=== PATIENT | male | born 1945 | race Caucasian/White ===

== ENCOUNTER 2020-09-09 07:52 | Day surgery (SDC) | payer MEDICARE, SELFPAY ==
[2020-09-03 09:56] VITALS: BMI 28.1
--- NOTE | 2020-09-08 10:54 | HO.ANESPROP2 ---
HPI - Anesthesia Eval Consult details Narrative: 75yo M for Colonoscopy PMFSH Past Medical History Medical History History of skin cancer History of urethral stricture HTN (hypertension) Surgical History Surgical History H/O colonoscopy Hx of dilation of urethra Social History Social History Patient Tobacco Use Status: Former Tobacco user Quit Date: 2006 Tobacco use type: Cigarette Use of substances other than those prescribed or required for medical reasons: No Are you DNR?: No Advance Directives: No Advance Directives Information Provided: Yes Meds Allergies Allergy/AdvReac Type Severity Reaction Status Date / Time pollen extracts Allergy Intermediate Itchy Eyes Verified 09/09/20 08:16 dust Allergy Intermediate Itchy Eyes Uncoded 09/03/20 09:52 Home Medications Medication Instructions Recorded Confirmed Last Taken Type amlodipine-benazepril 1 cap PO DAILY 09/03/20 09/03/20 09/09/20 07:15 History ascorbic acid (vitamin C) [Vitamin 500 mg PO DAILY 09/03/20 09/03/20 Unknown History C] loratadine 10 mg PO DAILY PRN 09/03/20 09/03/20 Unknown History multivitamin 1 tab PO DAILY 09/03/20 09/03/20 Unknown History zolpidem 10 mg PO BEDTIME 09/03/20 09/03/20 Unknown History Exam Exam Date and Time: September 08, 2020 1054 Height,Weight and Vital Signs: Height 5 ft 11 in Weight 91.626 kg Assessment and Plan Assessment Anesthesia Assessment: Chart Reviewed
[2020-09-09 08:23] VITALS: BP 138/84; PULSE 59; RESP 16; TEMP 37.1; O2SAT 98; BMI 26.4
[2020-09-09] MEDS: Lactated Ringers 1,000 ML 100 ML IVCONT (08:44)
--- NOTE | 2020-09-09 09:41 | HO.ANESPROP2 ---
[facility] Past Medical History Medical History History of skin cancer History of urethral stricture HTN (hypertension) Surgical History Surgical History H/O colonoscopy Hx of dilation of urethra Social History Social History Patient Tobacco Use Status: Former Tobacco user Quit Date: 2006 Tobacco use type: Cigarette Use of substances other than those prescribed or required for medical reasons: No Are you DNR?: No Advance Directives: No Advance Directives Information Provided: Yes Meds Allergies Allergy/AdvReac Type Severity Reaction Status Date / Time pollen extracts Allergy Intermediate Itchy Eyes Verified 09/09/20 08:16 dust Allergy Intermediate Itchy Eyes Uncoded 09/03/20 09:52 Active Medications: Current Medications Generic Name Dose Route Start Last Admin Trade Name Freq PRN Reason Stop Dose Admin Lactated Ringer's 1,000 mls @ 100 mls/hr 09/09/20 08:15 09/09/20 08:44 Lr IVCONT 100 mls/hr .Q10H LILI Administration Sodium Biphosphate/Sodium Phosphate 133 ml 09/09/20 08:03 Sodium Phosphate,Routt-Dibasic 133 Ml Enema DC ONCE PRN Poor Colonoscopy Prep Results Home Medications Medication Instructions Recorded Confirmed Last Taken Type amlodipine-benazepril 1 cap PO DAILY 09/03/20 09/03/20 09/09/20 07:15 History ascorbic acid (vitamin C) [Vitamin 500 mg PO DAILY 09/03/20 09/03/20 Unknown History C] loratadine 10 mg PO DAILY PRN 09/03/20 09/03/20 Unknown History multivitamin 1 tab PO DAILY 09/03/20 09/03/20 Unknown History zolpidem 10 mg PO BEDTIME 09/03/20 09/03/20 Unknown History Exam Exam Date and Time: September 09, 2020 0941 Height,Weight and Vital Signs: Height 5 ft 11 in Weight 86.183 kg Last Vital Signs Temp 98.8 F 09/09/20 08:23 Pulse 59 09/09/20 08:23 Resp 16 09/09/20 08:23 BP 138/84 09/09/20 08:23 Pulse Ox 98 09/09/20 08:23 Airway Mallampati Class: III TM Dist: >3cm Neck ROM: Full Heart: RRR Lungs: CTA
--- NOTE | 2020-09-09 10:56 | PM.OP ---
Brief Operative Note Date of Service: 09/09/20 Pre-op diagnosis: Screening Post-op diagnosis: other (Colon polyps) Procedure: Colonoscopy to the cecum with snare polypectomy(Transverse colon) and biopsy and removal of polyps Surgeon: Lico Rice Anesthesia: MAC Was an Director Of [employer] used for this Procedure?: No Estimated blood loss (mL): 3.0 Pathology: other (A. Cecal polyp B. Proximal ascending colon polyp C. Transverse colon polyp) Condition: stable Disposition: PACU
[2020-09-09 10:57] VITALS: BP 86/53; PULSE 50; RESP 16; TEMP 37.4; O2SAT 96
[2020-09-09 11:12] VITALS: BP 101/67; PULSE 62; RESP 18; O2SAT 97
--- NOTE | 2020-09-09 11:33 | OP_ITS ---
SURGEON: Lico Rice MD INDICATIONS: The patient presents for evaluation of personal history of tubular adenoma of the colon and colorectal cancer screening. Full consent has been obtained from him for this, including risks of bleeding and perforation. PREOPERATIVE DIAGNOSIS: POSTOPERATIVE DIAGNOSIS: PROCEDURE PERFORMED: Colonoscopy to the cecum with snare polypectomy, and biopsy and removal of polyps. ESTIMATED BLOOD LOSS: COMPLICATIONS: ANESTHESIA: Monitored anesthesia care. ASSISTANTS: SPECIMENS: PREOPERATIVE DIAGNOSES: Colorectal cancer screening and personal history of tubular adenoma of the colon. POSTOPERATIVE DIAGNOSES: Colorectal cancer screening and personal history of tubular adenoma of the colon, colon polyps, diverticulosis, and internal hemorrhoids. DESCRIPTION OF PROCEDURE: The patient was placed in the left lateral decubitus position. The digital rectal exam revealed no abnormalities. The Olympus video pediatric colonoscope was entered into the rectum and advanced easily to the cecum. Once in the cecum, I did identify cecal pouch with appendiceal orifice and a normal-appearing ileocecal valve. The entire cecum was well visualized and appeared normal other than a 3 mm polyp, which was biopsied and completely removed with cold biopsy forceps. There was transillumination of light deep in the right lower quadrant. The scope was then slowly withdrawn assessing all mucosal surfaces carefully. Preparation was excellent. In the proximal ascending colon, was a small approximately 3 or 4 mm polyp, which was biopsied and completely removed with cold biopsy forceps. In the transverse colon, was an approximately 10 mm grossly adenomatous polyp, which was snared and recovered by suction. The polypectomy site appeared clean, without any sign of residual polyp nor bleeding. I did not visualize any other polyps, colitis, nor angiodysplasia. There was a mild amount of sigmoid diverticulosis. In the rectum, scope was retroflexed visualizing small internal hemorrhoids, but no other pathology. The rectal mucosa appeared normal. The scope was straightened out and withdrawn from the patient. He tolerated the procedure well and was returned to the recovery area in stable condition. IMPRESSION: 1. Colon polyps, status post snare polypectomy, and biopsy and removal. 2. Diverticulosis. 3. Internal hemorrhoids. PLAN: The results of the pathology will be checked. I would recommend a repeat colonoscopy in 5 years for further screening. He was advised not to use any aspirin and NSAIDs for 1 week. MD LETICIA Condon/SONIA / [id number]
== END 2020-09-09 11:33 | disposition home or self-care (01) ==
PROVIDERS: PCP Internal Medicine; Visit Provider Internal Medicine
PROC: 0DJD8ZZ Inspection of Lower Intestinal Tract, Via Natural or Artificial Opening Endoscopic (ICD-10-PCS; CPT 45378; principal; 2020-09-09 09:10)
DX: Z12.11 Encounter for screening for malignant neoplasm of colon (principal); Z86.010 Personal history of colon polyps; D12.0 Benign neoplasm of cecum; D12.2 Benign neoplasm of ascending colon; D12.3 Benign neoplasm of transverse colon; K57.30 Diverticulosis of large intestine without perforation or abscess without bleeding; K64.8 Other hemorrhoids; I10 Essential (primary) hypertension; Z85.828 Personal history of other malignant neoplasm of skin; Z87.891 Personal history of nicotine dependence; Z79.899 Other long term (current) drug therapy
CPT/HCPCS: 45385; 45380; 88305